=== PATIENT | male | born 1940 | race Caucasian/White ===

== ENCOUNTER 2019-01-09 12:00 | Emergency (ER) | payer OTHER, MEDICAID ==
[~2019-01-09] VITALS: Ht 165.1 cm; Wt 79.8 kg
[2019-01-09 12:10] VITALS: BP 158/100
--- NOTE | 2019-01-09 13:33 | NUR ---
PT AMBULATED TO ER BED 01
--- NOTE | 2019-01-09 13:39 | NUR ---
PATIENT PRESENTS TO ED WITH C/O SEVERE HEADACHE S/P GETTING DIALYSIS YESTERDAY. REPORTS NAUSEA. HX OF DM, DIALYSIS M/W/F (L UPPER ARM SHUNT), HTN . AAOX4 WITH EVEN AND STEADY GAIT; LUNGS CLEAR BL; HR EVEN AND REGULAR; PT DENIES ANY FEVER, CP, SOB, OR COUGH AT THIS TIME;SKIN IS PINK/WARM/DRY; PATIENT STATES HEADACHE 10/10 AT THIS TIME; VSS; PATIENT POSITIONED FOR COMFORT; HOB ELEVATED; BEDRAILS UP X2; BED DOWN. ER MD MADE AWARE OF PT STATUS.
--- NOTE | 2019-01-09 13:40 | NUR ---
Note undone in EDM - 01/09/19 at 1348 by MEDDCV PT IS A 78 Y/O MALE WHO PRESENTS TO THE ED C/O HEADACHE. PT STATES THAT IT STARTED S/P DIALYSIS YESTERDAY (M/W/F). PT REPORTS 10/10 ACHING BILATERAL HEAD PAIN THAT DOES NOT RADIATE, DENIES BLURRY VISION. PT DENIES CP, SOB, REPORTS NAUSEA DENIES VOMITING/DIARRHEA. PT AWAKE AND ALERT, RR EVEN/UNLABORED. PT REPOSITIONED FOR COMFORT, BED IN LOWEST POSITION. ER MD DR. SAMAYOA NOTIFIED. WILL CONTINUE TO MONITOR. PMH--DM (268 ON TRIAGE), DIALYSIS M/W/F (L UPPER ARM SHUNT), HTN NKA
[2019-01-09] MEDS ORDERED: ACETAMINOPHEN 325 MG TAB PO ONE (14:40)
[2019-01-09 15:40] VITALS: BP 171/72
--- NOTE | 2019-01-09 15:40 | NUR ---
Patient discharged with v/s stable. Written and verbal after care instructions given and explained. Patient alert, oriented and verbalized understanding of instructions. Ambulatory* with steady gait. All questions addressed prior to discharge. ID band removed. Patient advised to follow up with PMD. Rx of NAPROSYN 250MG AND NORCO 5MG-325MG given. Patient educated on indication of medication including possible reaction and side effects. Opportunity to ask questions provided and answered.
== END 2019-01-09 15:40 | disposition home or self-care (01) ==
LOC: MED 12:00
DX: M54.12 Radiculopathy, cervical region (principal); R51 Headache; E11.22 Type 2 diabetes mellitus with diabetic chronic kidney disease; N18.6 End stage renal disease; Z99.2 Dependence on renal dialysis
CPT/HCPCS: 70450; 72125; 99284